=== PATIENT | female | born 1950 | race Caucasian/White ===

== ENCOUNTER → 2019-10-19 10:13 | Outpatient (BNVA) | payer MEDICARE, OTHER, SELFPAY | PROVIDERS: Visit Provider Internal Medicine | DX: E04.1 Nontoxic single thyroid nodule (principal); E03.9 Hypothyroidism, unspecified; E55.9 Vitamin D deficiency, unspecified; G47.33 Obstructive sleep apnea (adult) (pediatric); I10 Essential (primary) hypertension; M35.00 Sjogren syndrome, unspecified; M81.0 Age-related osteoporosis without current pathological fracture; N18.3 Chronic kidney disease, stage 3 (moderate); R53.82 Chronic fatigue, unspecified; R73.03 Prediabetes | CPT/HCPCS: 99204 ==

== ENCOUNTER 2019-12-01 12:19 | Outpatient (CLI) | payer MEDICARE, OTHER, SELFPAY ==
--- NOTE | 2019-12-01 12:45 | US_ITS ---
WS: [id number] THYROID ULTRASOUND HISTORY: assess thyroid for nodule COMPARISON: None available. Right lobe: 3.2 cm x 0.8 cm x 1.1 cm. Volume: 1.5 cm3. Small atrophic thyroid with mild diffuse heterogeneity. Margins are ill-defined. No discrete nodule o r increased vascularity. Left lobe: 3.1 cm x 0.9 cm x 0.7 cm. Volume: 1.0 cm3. Small atrophic thyroid with diffuse heterogeneity. Margins are ill-defined. No discrete nodule. No in creased vascularity. Isthmus: 0.2 cm. US/US thyroid [id number] IMPRESSION: Bilateral atrophic thyroid with no discrete nodule. Consistent with chronic dif fuse thyroid disease.
== END 2019-12-01 12:20 | disposition home or self-care (01) ==
LOC: US 12:22
PROVIDERS: PCP Family Medicine; Visit Provider Internal Medicine
DX: E04.1 Nontoxic single thyroid nodule (principal); E03.4 Atrophy of thyroid (acquired)
CPT/HCPCS: 76536

== ENCOUNTER 2019-12-14 13:36 | Outpatient (CLI) | payer MEDICARE, OTHER, SELFPAY ==
[2019-12-14 14:44] LABS: Estmated Average Glucose 123; Hemoglobin A1C 5.9 % (4.0-6.0)
[2019-12-14 14:45] LABS: 25 Hydroxy Vitamin D 70 ng/mL (30-100); Thyroid Stimulating Hormone 0.14 uIU/mL (0.27-4.20)
[2019-12-14 15:19] LABS: Free T4 Free Thyroxine 1.54 ng/dL (0.82-1.77)
== END 2019-12-14 13:37 | disposition home or self-care (01) ==
LOC: LAB 13:46
PROVIDERS: PCP Family Medicine; Visit Provider Internal Medicine
DX: E03.9 Hypothyroidism, unspecified (principal); E04.1 Nontoxic single thyroid nodule; E55.9 Vitamin D deficiency, unspecified; R73.03 Prediabetes; R53.82 Chronic fatigue, unspecified
CPT/HCPCS: 36415; 82306; 83036; 84439; 84443

== ENCOUNTER → 2019-12-18 09:28 | Outpatient (BNVA) | payer MEDICARE, OTHER, SELFPAY | PROVIDERS: PCP Family Medicine; Visit Provider Family Medicine | DX: I10 Essential (primary) hypertension (principal); F33.9 Major depressive disorder, recurrent, unspecified; F41.9 Anxiety disorder, unspecified | CPT/HCPCS: 80053; 80061; 82043; 85025 ==

== ENCOUNTER → 2019-12-19 08:02 | Outpatient (BNVA) | payer MEDICARE, OTHER, SELFPAY | PROVIDERS: PCP Family Medicine; Visit Provider Psychiatry & Neurology Neurology | DX: E03.9 Hypothyroidism, unspecified (principal); G47.33 Obstructive sleep apnea (adult) (pediatric); M81.0 Age-related osteoporosis without current pathological fracture; R73.03 Prediabetes | CPT/HCPCS: 99214 ==

== ENCOUNTER → 2020-01-16 13:59 | Outpatient (BNVA) | payer MEDICARE, OTHER, SELFPAY | PROVIDERS: PCP Family Medicine; Visit Provider Psychiatry & Neurology Psychiatry | DX: F41.1 Generalized anxiety disorder (principal); F33.2 Major depressive disorder, recurrent severe without psychotic features | CPT/HCPCS: 99204 ==

== ENCOUNTER → 2020-03-05 12:58 | Outpatient (BNVA) | payer MEDICARE, OTHER, SELFPAY | PROVIDERS: PCP Family Medicine; Visit Provider Internal Medicine | DX: E03.9 Hypothyroidism, unspecified (principal); G47.33 Obstructive sleep apnea (adult) (pediatric); M81.0 Age-related osteoporosis without current pathological fracture; R73.03 Prediabetes | CPT/HCPCS: 84439; 84443; 99214 ==

== ENCOUNTER 2020-03-05 13:55 | Outpatient (CLI) | payer MEDICARE, OTHER, SELFPAY | END 2020-03-05 13:56 | disposition home or self-care (01) | LOC: LAB 13:59 | PROVIDERS: PCP Family Medicine; Visit Provider Internal Medicine | DX: E03.9 Hypothyroidism, unspecified (principal) | CPT/HCPCS: 84439; 84443 ==

== ENCOUNTER → 2020-03-11 09:18 | Outpatient (BNVA) | payer MEDICARE, OTHER, SELFPAY | PROVIDERS: PCP Family Medicine; Visit Provider Psychiatry & Neurology Psychiatry | DX: F33.2 Major depressive disorder, recurrent severe without psychotic features (principal); F41.1 Generalized anxiety disorder | CPT/HCPCS: 99214 ==

== ENCOUNTER 2020-05-30 14:04 | Outpatient (CLI) | payer MEDICARE, OTHER, SELFPAY ==
--- NOTE | 2020-05-30 14:19 | US_ITS ---
WS: [id number] RENAL ULTRASOUND HISTORY: CHRONIC KIDNEY DZ STAGE III COMPARISON: None available. TECHNIQUE: 2-D and color Doppler imaging of the kidney submitted. Right kidney: 9.6 cm x 3.5 cm x 4.4 cm. Mild renal atrophy and increased echogenicity. No renal obstruction. Left kidney: 8.4 cm x 3.6 cm x 3.8 cm. Mild atrophy with increased echogenicity from chronic medical renal disease. Cyst in the lower pole m easures 2.8 x 1.9 x 2.1 cm. Aorta: Normal. Urinary Bladder: Normal distention. US/US renal BI* [id number] IMPRESSION: Mild chronic medical renal disease. Simple cyst LEFT kidney. No obstruction.
== END 2020-05-30 14:05 | disposition home or self-care (01) ==
LOC: RAD 14:09
PROVIDERS: PCP Family Medicine; Visit Provider Family Medicine
DX: N18.30 Chronic kidney disease, stage 3 unspecified (principal); Q61.01 Congenital single renal cyst
CPT/HCPCS: 76770

== ENCOUNTER 2020-05-30 14:58 | Outpatient (CLI) | payer MEDICARE, OTHER, SELFPAY ==
--- NOTE | 2020-05-30 15:05 | MM_ITS ---
WS: [id number] SCREENING DIGITAL MAMMOGRAM WITH CAD HISTORY: SCREENING COMPARISON: 03/01/2019, 02/01/2018 and 05/25/2013 Bilateral CC and MLO views submitted. Computer aided detection analyzed. Breast composition: There are scattered areas of fibroglandular density. There is a new 10 mm nodule in the medial LEFT breast near 9:00 posteriorly. There are additional benign rodlike calcifications i n the upper outer quadrant of the RIGHT breast. MM/[place] [id number] IMPRESSION: BI-RADS: 0-Incomplete: Need additional imaging evaluation FOLLOW UP: Need Additional Imaging LEFT breast: Spot compression views (CC and MLO). True ML. Ultrasound to follow if abnormality persists.
== END 2020-05-30 14:59 | disposition home or self-care (01) ==
PROVIDERS: PCP Family Medicine; Visit Provider Family Medicine
DX: Z12.31 Encounter for screening mammogram for malignant neoplasm of breast (principal)
CPT/HCPCS: 77067

== ENCOUNTER 2020-06-11 12:49 | Outpatient (CLI) | payer MEDICARE, OTHER, SELFPAY ==
--- NOTE | 2020-06-11 13:00 | MM_ITS ---
WS: [id number] ADDITIONAL VIEWS LEFT MAMMOGRAM LEFT BREAST ULTRASOUND HISTORY: ABNORMAL MAMMO COMPARISON: 05/30/2020 and 03/01/2019 and 02/01/2018 LEFT MAMMOGRAM: Spot compression views and true ML. Soft tissue mass with ill-defined naranjo persists measuring 11 mm at 9:00 LEFT breast at a middle dept h. Ultrasound to follow. LEFT BREAST ULTRASOUND 2-D and color Doppler imaging submitted. Ultrasound directed to the LEFT breast at 9:00. At 9:00, 3 cm from the nipple, there is a hypoechoic mass with thick naranjo. No increased vascularity. This may be a complex cyst. No through-transmission. No solid component or increased vascularity. This hypoechoic mass measures 1.0 x 0.6 x 1.1 cm. MM/[place] [id number] IMPRESSION: BI-RADS: 4-Suspicious Finding-Biopsy Should Be Considered FOLLOW UP: Biopsy Recommended Aspiration and/or core needle biopsy is recommended of the mass at 9:00 in the LEFT breast. This may be a complex cyst with thick naranjo. If this mass does not aspirate core needle biopsy should be obtained.
--- NOTE | 2020-06-11 13:30 | US_ITS ---
WS: [id number] ADDITIONAL VIEWS LEFT MAMMOGRAM LEFT BREAST ULTRASOUND HISTORY: ABNORMAL MAMMO COMPARISON: 05/30/2020 and 03/01/2019 and 02/01/2018 LEFT MAMMOGRAM: Spot compression views and true ML. Soft tissue mass with ill-defined naranjo persists measuring 11 mm at 9:00 LEFT breast at a middle dept h. Ultrasound to follow. LEFT BREAST ULTRASOUND 2-D and color Doppler imaging submitted. Ultrasound directed to the LEFT breast at 9:00. At 9:00, 3 cm from the nipple, there is a hypoechoic mass with thick naranjo. No increased vascularity. This may be a complex cyst. No through-transmission. No solid component or increased vascularity. This hypoechoic mass measures 1.0 x 0.6 x 1.1 cm. US/US breast LT limited* [id number] IMPRESSION: BI-RADS: 4-Suspicious Finding-Biopsy Should Be Considered FOLLOW UP: Biopsy Recommended Aspiration and/or core needle biopsy is recommended of the mass at 9:00 in the LEFT breast. This may be a complex cyst with thick naranjo. If this mass does not aspirate core needle biopsy should be obtained.
--- NOTE | 2020-06-14 10:57 | PC.NURSE ---
Called pt to set up biopsy. Pt stated she will be out of town until 07/02, and that she wants to wait until she gets back on 07/02 to do the biopsy. I told her if she needs anything or decides to have it done sooner, to let me know. Pt voiced understanding and stated she would get in touch when she comes back home from vacation. Gallo PHELPS
== END 2020-06-11 12:50 | disposition home or self-care (01) ==
LOC: RADSHAW 12:56
PROVIDERS: PCP Family Medicine; Visit Provider Family Medicine
DX: R92.8 Other abnormal and inconclusive findings on diagnostic imaging of breast (principal); N63.25 Unspecified lump in the left breast, overlapping quadrants
CPT/HCPCS: 76642; 77065

== ENCOUNTER 2020-07-11 07:25 | Outpatient (CLI) | payer MEDICARE, OTHER, SELFPAY ==
--- NOTE | 2020-07-11 08:00 | US_ITS ---
WS: [id number] ULTRASOUND-GUIDED LEFT BREAST BIOPSY HISTORY: ABNORMAL MAMMO COMPARISON: 06/11/2020 Procedure, risks and complications are explained to the patient. Medications are reviewed. Consent is obtained. The mass in the LEFT breast is localized with ultrasound. Skin is cleansed with ChloraPrep and anesth etized with 1% buffered lidocaine. Small dermatome is made. Under sterile conditions mass is biopsied with a 14-gauge Achieve needle. Only a single biopsy performed as the cyst completely collapsed afte r the initial biopsy. Material placed in formalin and sent to pathology for review. No complications encountered. Breast tissue marker ([employer] ultrasound enhanced ribbon): None. Mass completely collapsed after the fir st biopsy. Could not definitely identify the location for clip to be place. Patient left the radiology suite with no complications. Patient is instructed to return to [facility] or [facility] with any concerns. US/[place] [id number] IMPRESSION: 1. Uncomplicated core needle biopsy LEFT breast mass. Mass completely collapse d after the initial biopsy consistent with a cyst. PATHOLOGY: Benign breast tissue with duct ectasia, chronic inflammation and str omal sclerosis. No malignancy. RECOMMENDATION: Return to screening annual mammography. Screening mammogram to be scheduled for May 2021.
== END 2020-07-11 07:26 | disposition home or self-care (01) ==
LOC: RAD 07:30
PROVIDERS: PCP Family Medicine; Visit Provider Family Medicine
DX: N63.25 Unspecified lump in the left breast, overlapping quadrants (principal); N60.42 Mammary duct ectasia of left breast
CPT/HCPCS: 19083; 88305

== ENCOUNTER 2020-09-03 14:25 | Outpatient (CLI) | payer MEDICARE, OTHER, SELFPAY ==
--- NOTE | 2020-09-03 14:34 | XR_ITS ---
WS: [id number] PROCEDURE: XR chest 2V* [id number] CLINICAL INFORMATION: [place] COMPARISON: None. FINDINGS: Heart: Normal cardiac silhouette. Lungs: Hyperinflation. Advanced chronic emphysematous changes. No acute pulmonary infiltrates. Pleura l thickening with fibrosis right upper lobe with volume loss. Bronchiectasis right upper lobe. No foc al pneumonia or pleural fluid. Bones: Thoracolumbar scoliosis. Mild thoracic kyphosis. Osteopenia. XR/XR chest 2V* [id number] IMPRESSION: 1. Hyperinflation with advanced chronic emphysematous changes. 2. Pleural thickening with parenchymal scarring right upper lobe with volume l oss. This can be further evaluated with chest CT to exclude underlying lesion. Bronchiectasis right upper lobe. 3. No acute pulmonary infiltrates.
== END 2020-09-03 14:26 | disposition home or self-care (01) ==
PROVIDERS: PCP Family Medicine; Visit Provider Family Medicine
DX: Z13.6 Encounter for screening for cardiovascular disorders (principal); R06.09 Other forms of dyspnea; J47.9 Bronchiectasis, uncomplicated; N18.32 Chronic kidney disease, stage 3b; E03.9 Hypothyroidism, unspecified
CPT/HCPCS: 71046; 80053; 84439; 84443

== ENCOUNTER 2020-09-11 09:49 | Outpatient (CLI) | payer MEDICARE, OTHER, SELFPAY ==
--- NOTE | 2020-09-11 10:15 | CT_ITS ---
WS: [id number] Exam: CT chest wo con [id number] Date/Time of Exam: 09/11/2020 9:59 AM Reason For Exam: wheezing DLP: 825.[address] scans at [facility] use at least one of these dose optimization techniques: automat ed exposure control; mA and/or kV adjustment per patient size (includes targeted exams where dose is matched to clinical indication); or iterative reconstruction. There is pleural thickening and an fibrous pulmonary parenchymal changes in the right upper lobe. Rig ht hilar lymphadenopathy noted. The largest node measures about 1 cm at greatest short axis dimension . Subcentimeter mediastinal lymph nodes noted. The left lung is clear and fully expanded. The thoraci c aorta is normal in caliber. The trachea and mainstem bronchi are patent. No pleural or pericardial effusion. The remaining lung zones are clear. CT sections of the upper abdomen are unremarkable. Subc entimeter stone in the gallbladder. No destructive bone lesions. The chest wall is intact. Recommendations: Further workup with bronchoscopy and biopsy could be considered. Otherwise follow-up CT scan in 3 months for surveillance could be performed. CT/CT chest wo con [id number] IMPRESSION: 1. Pleural thickening and fibrous parenchymal pulmonary changes in the right up per lobe with bronchiectasis. Although these changes could be chronic, bronchio loalveolar cell carcinoma might have this appearance. Mildly enlarged right hil ar lymph nodes identified measuring up to 1 cm greatest short axis dimension. S ubcentimeter mediastinal lymph nodes noted.
== END 2020-09-11 09:50 | disposition home or self-care (01) ==
PROVIDERS: PCP Family Medicine; Visit Provider Family Medicine
DX: R06.2 Wheezing (principal)
CPT/HCPCS: 71250

== ENCOUNTER 2020-11-15 07:52 | Outpatient (CLI) | payer MEDICARE, OTHER, SELFPAY ==
--- NOTE | 2020-11-15 07:55 | US_ITS ---
WS: [id number] RENAL ULTRASOUND HISTORY: N18.32 - Chronic kidney disease, stage 3b COMPARISON: 05/30/2020 TECHNIQUE: 2-D and color Doppler imaging of the kidney submitted. Right kidney: 9.8 cm x 4.4 cm x 4.1 cm. Normal echogenicity with no hydronephrosis or mass. Left kidney: 9.1 cm x 4.9 cm x 4.5 cm. Normal echogenicity with no hydronephrosis or mass. Previously described LEFT renal cyst is not ident ified today. Aorta: Normal. Urinary Bladder: Normal distention. US/US renal BI* [id number] IMPRESSION: 1. No renal obstruction or solid mass identified. 2. Previously described LEFT renal cyst is not identified. 3. On today's examination there is no evidence for chronic medical renal disea se.
== END 2020-11-15 07:53 | disposition home or self-care (01) ==
LOC: RAD 07:53
PROVIDERS: PCP Family Medicine; Visit Provider Family Medicine
DX: N18.32 Chronic kidney disease, stage 3b (principal)
CPT/HCPCS: 76770

== ENCOUNTER 2020-11-21 14:33 | Outpatient (CLI) | payer MEDICARE, OTHER, SELFPAY ==
[2020-11-21 15:28] LABS: Basophils # 0.1 10^3/uL (0.0-0.1); Basophils % 0.5 %; Eosinophils # 0.4 10^3/uL (0.0-0.8); Eosinophils % 3.5 %; Hematocrit 45.6 % (37.0-47.0); Hemoglobin 14.8 g/dL (11.5-15.3); Lymphocytes # 2.9 10^3/uL (0.8-4.8); Lymphocytes % 29.5 %; Mean Corpuscular HGB Conc 32.5 g/dL (30.0-36.0); Mean Corpuscular Hemoglobin 30.4 pg (28.0-34.0); Mean Corpuscular Volume 93.6 fl (81-99); Mean Platelet Volume 10.4 fL (7.4-10.4); Monocytes # 0.8 10^3/uL (0.2-0.9); Monocytes % 8.1 %; Neutrophils # 5.79 10^3/uL (1.8-7.7); Neutrophils % 58.2 %; Nucleated Red Blood Cells % 0 %; Platelet Count 275 10^3/cmm (130-400); Red Blood Count 4.87 10^6/uL (4.1-5.3); Red Cell Distribution Width 12.3 % (12.1-15.1)
[2020-11-21 15:50] LABS: Immunoglobulin IGA 170 mg/dL (70-400); Immunoglobulin IGG 1160 mg/dL (700-1600); Immunoglobulin IGM 127 mg/dL (40-230)
[2020-11-22 17:32] LABS: Immunoglobulin E 57 kU/L (<OR=114)
[2020-11-22 17:58] LABS: Alternaria Alternata (M6) Ige 1.63 kU/L; Alternaria Class 2; Bermuda Class 0/1; Bermuda Grass (G2) Ige 0.31 kU/L; Cat Dander (E1) Ige 0.12 kU/L; Cat Dander Class 0/1; Common Ragweed (Short) (W1) Ig <0.10 kU/L; D. Farinae Class 0; Dermatophagoides Class 0; Dermatophagoides Farinae (D2) <0.10 kU/L; Dermatophagoides Pteronyssinus <0.10 kU/L; Dog Dander (E5) Ige <0.10 kU/L; Dog Dander Class 0; Elm (T8) Ige <0.10 kU/L; Elm Class 0; English Plantain (W9) Ige <0.10 kU/L; English Plantain Class 0; House Dust (Greer) (H1) Ige <0.10 kU/L; House Dust (Hollister- Stier) <0.10 kU/L; House Dust Class 0; Immunoglobulin E 50 kU/L (<OR=114); Johnson Grass (G10) Ige 0.59 kU/L; Johnson Grass Cl 1; June Grass Class 2; June Grass(Kentucky Blue) (G8) 0.86 kU/L; Lamb'S Quarters (Goose Foot) <0.10 kU/L; Lamb'S Quarters Class 0; Maple (Box Elder) (T1) Ige <0.10 kU/L; Maple Class 0; Meadow Fescue (G4) Ige 0.66 kU/L; Meadow Fescue Class 1; Mucor Racemosus Class 0; Oak (T7) Ige <0.10 kU/L; Oak Class 0; Orchard Grass (Cocksfoot) (G3) 0.65 kU/L; Penicillium Class 0/1; Penicillium Notatum (M1) Ige 0.16 kU/L; Perennial Rye Grass (G5) Ige 0.59 kU/L; Perennial Rye Grass Class 1; Ragweeed Class 0; Rough Marsh Elder (W16) Ige <0.10 kU/L; Rough Marsh Elder Class 0; Sweet Vernal Class 1; Sweet Vernal Grass (G1) Ige 0.65 kU/L; Timothy Grass (G6) Ige 0.57 kU/L; Timothy Grass Class 1
[2020-11-25 19:18] LABS: Aspergillus Fumigatus, Igg Ab, 14.9 mg/L (<=102)
[2020-11-26 17:57] LABS: Aspergillus AG,EIA,Serum NOT DETECTED; Aspergillus Galactomannan Inde <0.50
== END 2020-11-21 14:34 | disposition home or self-care (01) ==
PROVIDERS: PCP Family Medicine; Visit Provider Internal Medicine Pulmonary Disease
DX: J45.909 Unspecified asthma, uncomplicated (principal); J47.9 Bronchiectasis, uncomplicated; R06.00 Dyspnea, unspecified
CPT/HCPCS: 82784; 82785; 85025; 86003; 87305

== ENCOUNTER → 2021-01-08 15:30 | Outpatient (BNVA) | payer MEDICARE, OTHER, SELFPAY | PROVIDERS: PCP Family Medicine; Visit Provider Internal Medicine Pulmonary Disease | DX: Z20.822 Contact with and (suspected) exposure to COVID-19 (principal) | CPT/HCPCS: 87635 ==

== ENCOUNTER 2021-01-14 13:43 | Outpatient (CLI) | payer MEDICARE, OTHER, SELFPAY ==
--- NOTE | 2021-01-14 10:23 | PFTS_ITS ---
Date of Study:02/27/21 Date of Dictation: 03/04/21 MECHANICS: Postbronchodilator forced vital capacity (FVC) is normal. Postbronchodilator forced expiratory volume in one second (FEV1) is normal. FEV1/FVC is reduced. There is significant response to bronchodilator. FLOW VOLUME LOOP: Sloping of expiratory limb suggestive of obstructive ventilatory defect LUNG VOLUMES: Total lung capacity (TLC) is normal. Residual volume (RV) is normal. DIFFUSING CAPACITY FOR CARBON MONOXIDE: normal . INTERPRETATION: The spirometry suggestive of mild obstruction. There is significant response to bronchodilator. Lung volumes and gas transfer are normal.-clinical Correlation recommended. MTDD
--- NOTE | 2021-01-14 14:30 | PFTS_ITS ---
Date of Study:01/14/21 Date of Dictation: 01/14/2021 MECHANICS: Postbronchodilator forced vital capacity (FVC) is normal. Postbronchodilator forced expiratory volume in one second (FEV1) is normal. FEV1/FVC is normal. There is significant response to bronchodilator. FLOW VOLUME LOOP: Sloping of expiratory limb suggestive of obstructive ventilatory defect LUNG VOLUMES: Total lung capacity (TLC) is normal. Residual volume (RV) is normal. DIFFUSING CAPACITY FOR CARBON MONOXIDE: normal . INTERPRETATION: The pulmonary function tests are normal. There is significant response to bronchodilator.-clinical Correlation recommended. MTDD
== END 2021-01-14 13:44 | disposition home or self-care (01) ==
LOC: RT 13:44
PROVIDERS: PCP Family Medicine; Visit Provider Internal Medicine Pulmonary Disease
DX: J45.20 Mild intermittent asthma, uncomplicated (principal)
CPT/HCPCS: 94060; 94726; 94729; J7611

== ENCOUNTER → 2021-03-11 08:21 | Outpatient (BNVA) | payer MEDICARE, SELFPAY | PROVIDERS: PCP Family Medicine; Visit Provider Family Medicine | DX: I10 Essential (primary) hypertension (principal); Z78.0 Asymptomatic menopausal state; E03.9 Hypothyroidism, unspecified; N18.32 Chronic kidney disease, stage 3b; Z23 Encounter for immunization | CPT/HCPCS: 80053; 80061; 82043; 84439; 84443 ==

== ENCOUNTER → 2021-04-08 08:55 | Outpatient (BNVA) | payer MEDICARE, SELFPAY | PROVIDERS: PCP Family Medicine; Visit Provider Family Medicine | DX: E78.5 Hyperlipidemia, unspecified (principal) | CPT/HCPCS: 80053 ==

== ENCOUNTER → 2021-05-06 10:04 | Outpatient (BNVA) | payer MEDICARE, SELFPAY | PROVIDERS: PCP Family Medicine; Visit Provider Family Medicine | DX: I10 Essential (primary) hypertension (principal); K29.70 Gastritis, unspecified, without bleeding; J06.9 Acute upper respiratory infection, unspecified; E78.5 Hyperlipidemia, unspecified | CPT/HCPCS: 80048 ==

== ENCOUNTER 2021-05-15 14:28 | Outpatient (CLI) | payer MEDICARE, SELFPAY ==
[2021-05-15 15:30] LABS: Basophils % 0.4 %; Eosinophils # 0.3 10^3/uL (0.0-0.8); Eosinophils % 3.6 %; Hematocrit 41.4 % (37.0-47.0); Hemoglobin 13.4 g/dL (11.5-15.3); Lymphocytes % 31.3 %; Mean Corpuscular HGB Conc 32.4 g/dL (30.0-36.0); Mean Corpuscular Hemoglobin 29.2 pg (28.0-34.0); Mean Corpuscular Volume 90.2 fl (81-99); Mean Platelet Volume 9.6 fL (7.4-10.4); Monocytes # 0.9 10^3/uL (0.2-0.9); Monocytes % 9.1 %; Neutrophils # 5.24 10^3/uL (1.8-7.7); Neutrophils % 55.3 %; Nucleated Red Blood Cells % 0 %; Platelet Count 304 10^3/cmm (130-400); Red Blood Count 4.59 10^6/uL (4.1-5.3); Red Cell Distribution Width 12.3 % (12.1-15.1); White Blood Count 9.5 10^3/uL (4.0-10.0)
[2021-05-15 15:55] LABS: Albumin Level 4.4 g/dL (3.5-5.2); Anion Gap 16.4 (5-19); Blood Urea Nitrogen 14 mg/dL (8-23); Calcium 9.8 mg/dL (8.5-10.5); Carbon Dioxide 24 mmol/L (22-29); Chloride 100 mmol/L (98-107); Glucose 85 mg/dL (65-115); Phosphorus 3.3 mg/dL (2.5-4.5); Potassium 3.4 mmol/L (3.5-5.1); Sodium 137 mmol/L (136-145)
[2021-05-15 16:02] LABS: Calcium 9.9 mg/dL (8.5-10.5)
[2021-05-15 16:08] LABS: 25 Hydroxy Vitamin D 58 ng/mL (30-100)
[2021-05-15 16:10] LABS: Parathyroid Hormone 53.9 pg/mL (15-65)
[2021-05-15 16:12] LABS: Add Urine Culture? No; Bacteria Urine TRACE /hpf; Bilirubin Urine Neg (Negative); Blood Urine Neg (Negative); Glucose Urine UA Norm (Normal); Ketones Urine Negative (Negative); Leukocyte Esterase Urine Negative (Negative); Nitrate Urine Negative (Negative); Protein Urine Neg (Negative); RBC Urine 0-4 /hpf (0-2); Squamous Epithelial Cell Urine 0-4 /hpf (0-5); Urine Appearance Clear (CLEAR); Urine Color Yellow (Yellow); Urobilinogen Urine Norm (Negative); WBC Urine 0-4 /hpf (0-5); pH Urine 5 (5-7)
[2021-05-15 16:32] LABS: Creatinine Urine, Random 25 mg/dL (28-217); Microalbum Creatinine Ratio Ur 40 mg/dL (0-20); Microalbumin Random Urine 1 ug/dL (0-20)
== END 2021-05-15 14:29 | disposition home or self-care (01) ==
PROVIDERS: PCP Family Medicine; Visit Provider Internal Medicine Nephrology
DX: E55.9 Vitamin D deficiency, unspecified (principal); N18.32 Chronic kidney disease, stage 3b
CPT/HCPCS: 36415; 80069; 81001; 82044; 82306; 82310; 83970; 85025

== ENCOUNTER → 2021-07-09 13:08 | Outpatient (BNVA) | payer MEDICARE, OTHER, SELFPAY | PROVIDERS: PCP Family Medicine; Visit Provider Internal Medicine Pulmonary Disease | DX: R06.00 Dyspnea, unspecified (principal); J45.20 Mild intermittent asthma, uncomplicated; J47.9 Bronchiectasis, uncomplicated; M35.00 Sjogren syndrome, unspecified; G47.33 Obstructive sleep apnea (adult) (pediatric); E03.9 Hypothyroidism, unspecified; R91.1 Solitary pulmonary nodule; K80.20 Calculus of gallbladder without cholecystitis without obstruction | CPT/HCPCS: 71250; 99214 ==

== ENCOUNTER 2021-07-09 14:31 | Outpatient (CLI) | payer MEDICARE, OTHER, SELFPAY ==
--- NOTE | 2021-07-09 15:00 | CT_ITS ---
WS: [id number] CT CHEST WITHOUT INTRAVENOUS CONTRAST HISTORY: pulmonary nodules/ pre-procedure CT TECHNIQUE: Contiguous 5 mm axial imaging performed on the thorax. Coronal and sagittal reformats are submitted. All CT scans at [facility] use at least one of these dose optimization techniques: automated exposure control; mA and/or kV adjustment per patient size (includes targeted exams where dose is matched to clinical indication); or iterative reconstruction. CONTRAST: None DLP: 702.90 mGy.cm COMPARISON: PET/CT 11/30/2020. Prior chest CT 09/11/2020 Lungs and central airway: Mild hyperinflated lungs. Previously described PET/CT negative pleural thic kening and bronchiectasis in the RIGHT upper lobe is unchanged. The bronchiectasis has not significan tly progressed. No increase in amount of scarring and pleural thickening. There is an additional calc ification in the RIGHT lower lobe which is stable. No mass or pneumonia. Pleura: Normal. No pleural effusion. Heart and pericardium: Normal size heart with no pericardial effusion. Mediastinum and lisa: No mediastinum or hilar adenopathy. Vessels: Normal size aortic and pulmonary artery. No coronary artery calcifications. Chest wall and lower neck: No soft tissue masses. Upper abdomen: Cholelithiasis without acute cholecystitis. No bile duct dilatation. Osseous structures: Mild compression deformity of T3. CT/CT chest wo con [id number] IMPRESSION: 1. Stable pleural thickening with bronchiectasis RIGHT upper lobe. 2. No mass or pneumonia. No adenopathy. 3. Cholelithiasis without acute cholecystitis.
== END 2021-07-09 14:32 | disposition home or self-care (01) ==
LOC: RAD 14:37
PROVIDERS: PCP Family Medicine; Visit Provider Internal Medicine Pulmonary Disease
DX: K80.20 Calculus of gallbladder without cholecystitis without obstruction (principal); R91.1 Solitary pulmonary nodule; J47.9 Bronchiectasis, uncomplicated; R06.00 Dyspnea, unspecified
CPT/HCPCS: 71250

== ENCOUNTER → 2021-07-31 14:36 | Outpatient (BNVA) | payer MEDICARE, OTHER, SELFPAY | PROVIDERS: PCP Family Medicine; Visit Provider Internal Medicine Pulmonary Disease | DX: R06.00 Dyspnea, unspecified (principal); J45.20 Mild intermittent asthma, uncomplicated; J47.9 Bronchiectasis, uncomplicated; M35.00 Sjogren syndrome, unspecified; G47.33 Obstructive sleep apnea (adult) (pediatric) | CPT/HCPCS: 99214 ==

== ENCOUNTER → 2021-11-11 10:05 | Outpatient (BNVA) | payer MEDICARE, SELFPAY | PROVIDERS: PCP Family Medicine; Visit Provider Family Medicine | DX: I10 Essential (primary) hypertension (principal); R73.03 Prediabetes; E03.9 Hypothyroidism, unspecified; E78.5 Hyperlipidemia, unspecified; N18.32 Chronic kidney disease, stage 3b | CPT/HCPCS: 80053; 80061; 83036; 84443; 85025 ==

== ENCOUNTER 2022-03-16 12:26 | Outpatient (CLI) | payer MEDICARE, OTHER, SELFPAY | END 2022-03-16 12:27 | disposition home or self-care (01) | LOC: LAB 12:30 | PROVIDERS: PCP Family Medicine; Visit Provider Nurse Practitioner Family | DX: R19.7 Diarrhea, unspecified (principal) | CPT/HCPCS: 87493; 87506 ==

== ENCOUNTER → 2022-04-22 13:57 | Outpatient (BNVA) | payer MEDICARE, OTHER, SELFPAY | PROVIDERS: PCP Family Medicine; Visit Provider Internal Medicine Pulmonary Disease | DX: G47.33 Obstructive sleep apnea (adult) (pediatric) (principal); J45.20 Mild intermittent asthma, uncomplicated; J47.9 Bronchiectasis, uncomplicated; M35.00 Sjogren syndrome, unspecified; J82.83 Eosinophilic asthma; R91.8 Other nonspecific abnormal finding of lung field | CPT/HCPCS: 99214 ==

== ENCOUNTER 2022-05-25 12:45 | Outpatient (CLI) | payer MEDICARE, OTHER, SELFPAY ==
[2022-05-25 14:01] LABS: Basophils % 0.3 %; Eosinophils # 0.3 10^3/uL (0.0-0.8); Eosinophils % 2.7 %; Hematocrit 39.1 % (37.0-47.0); Hemoglobin 12.7 g/dL (11.5-15.3); Lymphocytes # 2.3 10^3/uL (0.8-4.8); Lymphocytes % 20.8 %; Mean Corpuscular HGB Conc 32.5 g/dL (30.0-36.0); Mean Corpuscular Hemoglobin 30.1 pg (28.0-34.0); Mean Corpuscular Volume 92.7 fl (81-99); Monocytes # 1.2 10^3/uL (0.2-0.9); Monocytes % 10.9 %; Neutrophils # 7.06 10^3/uL (1.8-7.7); Neutrophils % 64.8 %; Nucleated Red Blood Cells % 0 %; Platelet Count 286 10^3/cmm (130-400); Red Blood Count 4.22 10^6/uL (4.1-5.3); White Blood Count 10.9 10^3/uL (4.0-10.0)
[2022-05-25 14:27] LABS: Albumin Level 4.3 g/dL (3.5-5.2); Anion Gap 11.3 (5-19); Blood Urea Nitrogen 28 mg/dL (8-23); Calcium 9.6 mg/dL (8.5-10.5); Carbon Dioxide 27 mmol/L (22-29); Chloride 97 mmol/L (98-107); Glucose 87 mg/dL (65-115); Phosphorus 2.8 mg/dL (2.5-4.5); Potassium 4.3 mmol/L (3.5-5.1); Sodium 131 mmol/L (136-145)
[2022-05-25 14:28] LABS: Calcium 9.5 mg/dL (8.5-10.5)
[2022-05-25 14:31] LABS: Parathyroid Hormone 26.1 pg/mL (15-65)
[2022-05-25 14:40] LABS: 25 Hydroxy Vitamin D 78 ng/mL (30-100)
[2022-05-25 14:41] LABS: Creatinine Urine, Random 137 mg/dL (28-217); Microalbum Creatinine Ratio Ur 7 mg/dL (0-20); Microalbumin Random Urine 1 ug/dL (0-20)
== END 2022-05-25 12:46 | disposition home or self-care (01) ==
PROVIDERS: PCP Family Medicine; Visit Provider Registered Nurse
DX: N18.32 Chronic kidney disease, stage 3b (principal)
CPT/HCPCS: 36415; 80069; 82044; 82306; 82310; 83970; 85025

== ENCOUNTER 2022-05-27 12:38 | Outpatient (CLI) | payer MEDICARE, OTHER, SELFPAY ==
--- NOTE | 2022-05-27 13:18 | MM_ITS ---
WS: [id number] BILATERAL 3D TOMOSYNTHESIS DIGITAL SCREENING MAMMOGRAPHY WITH CAD CLINICAL INFORMATION: screening mammogram HISTORY: Screening mammogram. No current complaints. COMPARISON: May 30, 2020 TECHNIQUE: Bilateral CC and MLO views. FINDINGS: Scattered fibroglandular densities bilaterally. No suspicious focal mass, asymmetry, calcifications, or architectural distortion. No evidence of malignancy. Stable density subareolar tissue RIGHT breast . Incidental punctate and secretory calcifications RIGHT breast. Vascular calcification. MM/[place] [id number] IMPRESSION: BI-RADS: 2-Benign FOLLOW UP: 1 Year Follow-up Recommend return to annual screening mammography.
== END 2022-05-27 12:39 | disposition home or self-care (01) ==
LOC: RAD 12:45
PROVIDERS: PCP Family Medicine; Visit Provider Family Medicine
DX: Z12.31 Encounter for screening mammogram for malignant neoplasm of breast (principal); E03.9 Hypothyroidism, unspecified; R73.03 Prediabetes; I10 Essential (primary) hypertension
CPT/HCPCS: 77063; 77067; 80053; 83036; 84443

== ENCOUNTER → 2022-09-14 10:34 | Outpatient (BNVA) | payer MEDICARE, OTHER, SELFPAY | PROVIDERS: PCP Family Medicine; Visit Provider Family Medicine | DX: R53.82 Chronic fatigue, unspecified (principal) | CPT/HCPCS: 80053; 84443; 85025 ==

== ENCOUNTER → 2022-10-29 12:31 | Outpatient (BNVA) | payer MEDICARE, OTHER, SELFPAY | PROVIDERS: PCP Family Medicine; Visit Provider Internal Medicine Pulmonary Disease | DX: J82.83 Eosinophilic asthma (principal); G47.33 Obstructive sleep apnea (adult) (pediatric); J47.9 Bronchiectasis, uncomplicated; J30.1 Allergic rhinitis due to pollen; M35.00 Sjogren syndrome, unspecified | CPT/HCPCS: 99214 ==

== ENCOUNTER → 2022-11-09 13:27 | Outpatient (BNVA) | payer MEDICARE, OTHER, SELFPAY | PROVIDERS: PCP Family Medicine; Visit Provider Family Medicine | DX: E78.5 Hyperlipidemia, unspecified (principal); R73.03 Prediabetes | CPT/HCPCS: 80053; 80061; 83036 ==

== ENCOUNTER → 2022-11-24 11:13 | Outpatient (BNVA) | payer MEDICARE, OTHER, SELFPAY | PROVIDERS: PCP Family Medicine; Visit Provider Nurse Practitioner Family | DX: N39.0 Urinary tract infection, site not specified (principal); R53.83 Other fatigue; J32.9 Chronic sinusitis, unspecified | CPT/HCPCS: 81003; 87486; 87581; 87633 ==

== ENCOUNTER → 2023-05-25 15:57 | Outpatient (BNVA) | payer MEDICARE, OTHER, SELFPAY | PROVIDERS: PCP Family Medicine; Visit Provider Family Medicine | DX: I10 Essential (primary) hypertension (principal); E03.9 Hypothyroidism, unspecified; R73.03 Prediabetes | CPT/HCPCS: 80053; 83036; 84443; 85025 ==

== ENCOUNTER 2023-06-02 14:10 | Outpatient (CLI) | payer MEDICARE, OTHER, SELFPAY ==
[2023-06-02 15:17] LABS: Albumin Level 4.3 g/dL (3.5-5.2); Anion Gap 14.9 (5-19); Blood Urea Nitrogen 20 mg/dL (8-23); Calcium 9.4 mg/dL (8.5-10.5); Carbon Dioxide 22 mmol/L (22-29); Chloride 107 mmol/L (98-107); Glucose 148 mg/dL (65-115); Phosphorus 2.4 mg/dL (2.5-4.5); Potassium 3.9 mmol/L (3.5-5.1); Sodium 140 mmol/L (136-145)
[2023-06-02 15:18] LABS: Calcium 9.5 mg/dL (8.5-10.5)
[2023-06-02 15:24] LABS: Creatinine Urine, Random 158 mg/dL (28-217); Microalbum Creatinine Ratio Ur 13 mg/dL (0-20); Microalbumin Random Urine 2 ug/dL (0-20)
[2023-06-02 15:25] LABS: Parathyroid Hormone 39.6 pg/mL (15-65)
[2023-06-02 15:33] LABS: 25 Hydroxy Vitamin D 26 ng/mL (30-100)
== END 2023-06-02 14:11 | disposition home or self-care (01) ==
LOC: LAB 14:15
PROVIDERS: PCP Family Medicine; Visit Provider Internal Medicine Nephrology
DX: N18.31 Chronic kidney disease, stage 3a (principal)
CPT/HCPCS: 36415; 80069; 82044; 82306; 82310; 83970

== ENCOUNTER → 2023-06-23 10:20 | Outpatient (BNVA) | payer MEDICARE, OTHER, SELFPAY | PROVIDERS: PCP Family Medicine; Visit Provider Internal Medicine Pulmonary Disease | DX: J45.20 Mild intermittent asthma, uncomplicated (principal); G47.33 Obstructive sleep apnea (adult) (pediatric); R06.2 Wheezing; J47.9 Bronchiectasis, uncomplicated; M35.00 Sjogren syndrome, unspecified | CPT/HCPCS: 99214 ==

== ENCOUNTER 2023-06-29 14:50 | Outpatient (CLI) | payer MEDICARE, OTHER, SELFPAY ==
--- NOTE | 2023-06-29 15:00 | MM_ITS ---
WS: [id number] BILATERAL 3D TOMOSYNTHESIS DIGITAL SCREENING MAMMOGRAPHY WITH CAD CLINICAL INFORMATION: screening HISTORY: Screening mammogram. No current complaints. COMPARISON: 2022 TECHNIQUE: Bilateral CC and MLO views. FINDINGS: Scattered fibroglandular densities bilaterally. No suspicious focal mass, asymmetry, calcifications, or architectural distortion. No evidence of malignancy. Secretory calcifications RIGHT greater than L EFT. Vascular calcifications. MM/[place] [id number] IMPRESSION: BI-RADS: 2-Benign FOLLOW UP: 1 Year Follow-up Recommend return to annual screening mammography.
== END 2023-06-29 14:51 | disposition home or self-care (01) ==
LOC: MOBLMAM 15:01
PROVIDERS: PCP Family Medicine; Visit Provider Family Medicine
DX: Z12.31 Encounter for screening mammogram for malignant neoplasm of breast (principal)
CPT/HCPCS: 77063; 77067

== ENCOUNTER 2023-06-30 15:35 | Outpatient (CLI) | payer MEDICARE, SELFPAY ==
--- NOTE | 2023-06-30 16:00 | CTR_ITS ---
PROCEDURE INFORMATION: Exam: CT Chest Without Contrast; Diagnostic Exam date and time: 06/30/2023 3:45 PM Age: 72 years old Clinical indication: Patient HX: Follow up, shortness of breath and chest tightness x last few months TECHNIQUE: Imaging protocol: Diagnostic computed tomography of the chest without contrast. Radiation optimization: All CT scans at this facility use at least one of these dose optimization techniques: automated exposure control; mA and/or kV adjustment per patient size (includes targeted exams where dose is matched to clinical indication); or iterative reconstruction. COMPARISON: CT chest wo con [id number] 07/09/2021 2:42 PM RADIATION DOSE METRICS: Total DLP (mGy-cm): 300.38 FINDINGS: Lungs: Lung windows demonstrate stable appearance of chronic pleural thickening, pulmonary parenchymal scarring, and bronchiectasis in the right upper lobe when correlated with prior exam of 07/09/2021. No interval new infiltrate or consolidation. Benign calcification or granuloma in the mid to lower right lung, as noted with prior exam. Mild hyperinflated lungs as noted with prior exam. Pleural spaces: No pleural effusion or pneumothorax. Heart: No cardiomegaly. No pericardial effusion. No coronary artery calcification. Lymph nodes: Nonspecific lymph nodes within the mediastinum that are unchanged with prior exam, without significant enlargement. Vasculature: Mild calcification thoracic aorta. Thoracic aorta and pulmonary arteries appear unremarkable for unenhanced exam otherwise. Diaphragm: Tiny hiatal hernia. Gallbladder and bile ducts: Partially visualized cholelithiasis on images through the upper-most abdomen, chronic with prior exam. Bones/joints: Mild chronic compression deformity T3 with prior exam. Soft tissues: Unremarkable. CT/CT chest con [id number] IMPRESSION: 1. Stable appearance of chronic pleural thickening, pulmonary parenchymal scarring, and bronchiectasis in the right upper lobe with 2021 exam. 2. No acute findings in the chest otherwise, without significant change with prior exam. 3. Cholelithiasis again noted.
== END 2023-06-30 15:36 | disposition home or self-care (01) ==
LOC: RAD 15:36
PROVIDERS: PCP Family Medicine; Visit Provider Internal Medicine Pulmonary Disease
DX: J47.9 Bronchiectasis, uncomplicated (principal); J92.9 Pleural plaque without asbestos; J84.10 Pulmonary fibrosis, unspecified; K80.20 Calculus of gallbladder without cholecystitis without obstruction
CPT/HCPCS: 71250

== ENCOUNTER 2023-07-06 12:17 | Outpatient (CLI) | payer MEDICARE, OTHER, SELFPAY ==
--- NOTE | 2023-07-06 12:21 | XRR_ITS ---
PROCEDURE INFORMATION: Exam: XR Bilateral Hips Exam date and time: 07/06/2023 12:49 PM Age: 72 years old Clinical indication: Hip pain; Bilateral; Additional info: Right hip pain, changed to bilateral TECHNIQUE: Imaging protocol: Radiologic exam of the bilateral hips. Views: 2 views of hips with pelvis when performed. COMPARISON: CR XR hip LT 2-3V wo/w pel* [id number] 07/06/2023 12:49 PM FINDINGS: Bones/joints: Mild bilateral degenerative changes. No acute fracture. Soft tissues: Unremarkable. XR/XR hip BI m 5V wo/w pel* [id number] IMPRESSION: No acute fracture or dislocation.
== END 2023-07-06 12:18 | disposition home or self-care (01) ==
LOC: RAD 12:19
PROVIDERS: PCP Family Medicine; Visit Provider Family Medicine
DX: M25.551 Pain in right hip (principal); M25.552 Pain in left hip; E03.9 Hypothyroidism, unspecified
CPT/HCPCS: 73502; 73523; 84439; 84443

== ENCOUNTER 2023-08-02 18:31 | Emergency (ER) | payer MEDICARE, SELFPAY ==
[2023-08-02 18:39] VITALS: BP 145/71; PULSE 71; RESP 16; TEMP 36.6; O2SAT 96
--- NOTE | 2023-08-02 18:39 | XRR_ITS ---
PROCEDURE INFORMATION: Exam: XR Chest Exam date and time: 08/02/2023 7:10 PM Age: 73 years old Clinical indication: Shortness of breath; Additional info: SOB TECHNIQUE: Imaging protocol: Radiologic exam of the chest. Views: 1 view. COMPARISON: CT chest [facility] [id number] 06/30/2023 3:45 PM FINDINGS: Lungs: Emphysematous changes suspect. Left lower lobe atelectasis versus minimal infiltrate. Right apical pleuroparenchymal fibrosis. Pleural spaces: Trace bilateral pleural effusions suspected. Heart/Mediastinum: Borderline cardiomegaly. Bones/joints: Unremarkable. XR/XR chest 1V portable [id number] IMPRESSION: 1. Emphysematous changes suspected. 2. Borderline cardiomegaly. 3. Trace bilateral pleural effusions suspected. 4. Left lower lobe atelectasis versus minimal infiltrate. 5. Right apical pleuroparenchymal fibrosis.
--- NOTE | 2023-08-02 18:39 | ECG_ITS ---
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 Measurements Intervals [place] Rate: 69 P: 47 VT: 132 QRS: 47 QRSD: 82 T: 48 QT: 354 QTc: 382 Interpretive Statements SINUS RHYTHM LOW QRS VOLTAGE IN PRECORDIAL LEADS [QRS DEFLECTION < 1.0 mV IN CHEST LEADS] No previous ECG available for comparison Electronically Signed On 08-06-2023 13:19:45 CDT by Rafiq Hogan M.D. [id number]
[2023-08-02 19:15] LABS: Basophils % 0.2 %; Eosinophils # 0.4 10^3/uL (0.0-0.8); Eosinophils % 3.1 %; Hematocrit 33.7 % (36-47); Lymphocytes # 4.2 10^3/uL (0.8-4.8); Lymphocytes % 33.3 %; Mean Corpuscular Hemoglobin 30.7 pg (27-33); Mean Corpuscular Volume 95.7 fl (85-98); Mean Platelet Volume 9.2 fL (7.4-10.4); Monocytes % 7.7 %; Neutrophils # 6.91 10^3/uL (1.8-7.7); Neutrophils % 55.3 %; Nucleated Red Blood Cells % 0 %; Platelet Count 293 10^3/cmm (157-399); Red Blood Count 3.52 10^6/uL (3.85-5.65); Red Cell Distribution Width 13.2 % (12.1-15.1); White Blood Count 12.51 10^3/uL (3.29-11.43)
[2023-08-02 19:53] LABS: Alanine Aminotransferase 27 U/L (0-33); Albumin Level 4.1 g/dL (3.5-5.2); Alkaline Phosphatase 55 U/L (35-105); Anion Gap 15.5 (5-19); Aspartate Amino Transferase 16 U/L (0-32); Blood Urea Nitrogen 18 mg/dL (8-23); Calcium 7.9 mg/dL (8.5-10.5); Carbon Dioxide 24 mmol/L (22-29); Chloride 110 mmol/L (98-107); Creatinine Clr Calc Pharmacy 31.8552; Globulin 2.5 g/dL (1.3-4.6); Glucose 134 mg/dL (65-115); NT Pro B Type Natriuretic Pept 561 pg/mL (0-125); Osmolality Calculated 306 mOsm/kg (285-295); Potassium 3.5 mmol/L (3.5-5.1); Sodium 146 mmol/L (136-145); Total Bilirubin 0.2 mg/dL (0.15-1.2); Total Protein 6.6 g/dL (6.6-8.7)
--- NOTE | 2023-08-02 20:55 | ECG_ITS ---
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 Measurements Intervals [place] Rate: 65 P: 54 MD: 138 QRS: 48 QRSD: 79 T: 42 QT: 377 QTc: 392 Interpretive Statements SINUS RHYTHM LOW QRS VOLTAGE IN PRECORDIAL LEADS [QRS DEFLECTION < 1.0 mV IN CHEST LEADS] No previous ECG available for comparison Electronically Signed On 08-06-2023 13:20:34 CDT by Rafiq Hogan M.D. [id number]
[2023-08-02 20:57] LABS: D Dimer 1.93 ug/mLFEU (0-0.59)
[2023-08-02] MEDS: FUROsemide 10 mg/mL SDV 4mL 40 MG IVP (21:02)
--- NOTE | 2023-08-02 21:04 | ED_ITS ---
HPI - SOB/Dyspnea 2 General: Chief Complaint: Shortness of Breath/Dyspnea Stated Complaint: swelling in legs and abd, sob Time Seen by Provider: 08/02/23 20:06 Source: patient Mode of arrival: ambulatory Limitations: no limitations History of Present Illness: HPI Narrative: 73-year-old female states she has been t raveling over the weekend states sometimes she is get some swelling when she travels she take an [id number] water pill states she still feels swollen in her legs states her arms and chest feel swollen as well she had some mild pains throughout her body and chest she has had some mild shortness of breath denies any severe dyspnea denies any cough denies any fevers. Associated symptoms: Reports chest pain; Deny abdominal pain, fever(s), nausea or vomiting Review of Systems 2 Const: Denies: fever(s), chills, body aches or change in appetite Eyes: Denies: blurry vision or eye discomfort ENMT: Denies: throat pain or dental pain Card: Reports: chest pain Resp: Reports: dyspnea GI: Denies: abdominal pain, nausea, vomiting or diarrhea Musc: Reports: extremity swelling; Denies: neck pain or back pain Skin/Breast: Denies: rash Neuro: Denies: headache(s) PFSH ED 2 PFSH: Medical History History of nonmelanoma skin cancer Chronic kidney disease Hypothyroidism Asthma Anxiety Depression Sjogren's disease Surgical History History of hysterectomy H/O tubal ligation Family History Mother Cancer uterine Father Kidney disease Sister Cancer thyroid Social History Smoking and tobacco/nicotine status: never used tobacco/nicotine Alcohol intake: current Alcohol intake frequency: holidays/special occasions only Substance/Drug Use: never Current gender identity: Female Physical Exam 2 Const: COMMON NORMALS: no acute distress, patient oriented x3 and healthy appearing HENMT: COMMON NORMALS: normocephalic and atraumatic HEAD & SCALP: n ormocephalic and atraumatic Neck/C-Spine: COMMON NORMALS: full ROM and supple Chest: COMMONS NORMALS: normal inspection of the chest Resp: COMMON NORMALS: normal respiratory effort, No retractions, No use of accessory muscles and clear to auscultation bilaterally AUSCULTATION: clear to auscultation bilaterally Cardio: COMMON NORMALS: regular rate, regular rhythm and No murmurs present (Cardio) RATE: regular rate RHYTHM: regular rhythm Extremity: COMMON NORMALS: normal to inspection and full ROM Neuro: COMMON NORMALS: patient oriented x3, moves all extremities and no focal motor deficits Psych: COMMON NORMALS: mental status grossly normal, Normal thought process present and cooperative THOUGHT PROCESS: Normal thought process present Skin: COMMON NORMALS: no rashes or lesions noted and no wounds GENERAL SKIN EXAM: no rashes or lesions noted Course 2 Vital Signs: Vital signs: Vital Signs Temperature 97.9 F 08/02/23 18:39 Pulse Rate 65 08/02/23 22:30 Respiratory Rate 16 08/02/23 22:30 Blood Pressure 145/71 08/02/23 18:39 Pulse Oximetry 97 08/02/23 22:30 Oxygen Delivery Me thod Room Air 08/02/23 21:45 MDM - SOB/Dyspnea Medical Decision Making Patient presents for some dyspnea and lower extremity swelling CTA showed no acute findings her troponin is negative no signs of ACS did give her dose of Lasix she is feeling improved here she is stable for discharge follow-up with PCP return if worsening she understands agrees to plan Medical Records I reviewed the patient's medical records. Lab Data I reviewed the patient's lab results. 08/02/23 17:06 08/02/23 17:08 Labs/Radiology: Radiology Impressions Chest X-Ray 08/02/23 18:39 IMPRESSION: 1. Emphysematous changes suspected. 2. Borderline cardiomegaly. 3. Trace bilateral pleural effusions suspected. 4. Left lower lobe atelectasis versus minimal infiltrate. 5. Right apical pleuroparenchymal fibrosis. Chest CTA 08/02/23 21:15 IMPRESSION: 1. Negative for pulmonary embolus. 2. Scattered subcentimeter short axis mediastinal lymph nodes. 3. Small pleural effusions. 4. Distal esophageal wall thickening, please correlate for esophagitis. 5. Cholelithiasis with gallbladder wall thickening, ultrasound could further evaluate. 6. Cardiomegaly. 7. Right upper lobe bronchiectasis with chronic appearing pleuroparenchymal fibrosis, similar to prior exams. 8. Bilateral dependent atelectasis versus infiltrate left greater than right. 9. Left kidney nonobstructing calyceal stone. 10. Left kidney cyst, negative for follow-up advised. Laboratory Results WBC 12.51 10^3/uL (3.29-11.43) H 08/02/23 17:06 RBC 3.52 10^6/uL (3.85-5.65) L 08/02/23 17:06 Hgb 10.80 g/dL (11.27-16.99) L 08/02/23 17:06 Hct 33.7 % (36-47) L 08/02/23 17:06 MCV 95.7 fl (85-98) 08/02/23 17:06 MCH 30.7 pg (27-33) 08/02/23 17:06 MCHC 32.0 g/dL (30-55) 08/02/23 17:06 RDW 13.2 % (12.1-15.1) 08/02/23 17:06 Plt Count 293 10^3/cmm (157-399) 08/02/23 17:06 MPV 9.2 fL (7.4-10.4) 08/02/23 17:06 Neut % (Auto) 55.3 % 08/02/23 17:06 Lymph % (Auto) 33.3 % 08/02/23 17:06 [place] % (Auto) 7.7 % 08/02/23 17:06 Eos % (Auto) 3.1 % 08/02/23 17:06 Baso % (Auto) 0.2 % 08/02/23 17:06 Neut # (Auto) 6.91 10^3/uL (1.8-7.7) 08/02/23 17:06 Lymph # (Auto) 4.2 10^3/uL (0.8-4.8) 08/02/23 17:06 [place] # (Auto) 1.0 10^3/uL (0.2-0.9) H 08/02/23 17:06 Eos # (Auto) 0.4 10^3/uL (0.0-0.8) 08/02/23 17:06 Baso # (Auto) 0.0 10^3/uL (0.0-0.1) 08/02/23 17:06 Nucleated RBC % (auto) 0 % 08/02/23 17:06 Nucleated RBCs # 0.0 /100WBC 08/02/23 17:06 D-Dimer 1.93 ug/mLFEU (0-0.59) H 08/02/23 18:00 Sodium 146 mmol/L (136-145) H 08/02/23 17:08 Potassium 3.5 mmol/L (3.5-5.1) 08/02/23 17:08 Chloride 110 mmol/L (98-107) H 08/02/23 17:08 Carbon Dioxide 24 mmol/L (22-29) 08/02/23 17:08 Anion Gap 15.5 (5-19) 08/02/23 17:08 BUN 18 mg/dL (8-23) 08/02/23 17:08 Creatinine 1.4 mg/dL (0.5-0.9) H 08/02/23 17:08 GFR Calculation Not Reportable 08/02/23 17:08 Glucose 134 mg/dL (65-115) H 08/02/23 17:08 Calculated Osmolality 306 mOsm/kg (285-295) H 08/02/23 17:08 Calcium 7.9 mg/dL (8.5-10.5) L 08/02/23 17:08 Total Bilirubin 0.2 mg/dL (0.15-1.2) 08/02/23 17:08 AST 16 U/L (0-32) 08/02/23 17:08 ALT 27 U/L (0-33) 08/02/23 17:08 Alkaline Phosphatase 55 U/L (35-105) 08/02/23 17:08 Troponin T Baseline 9 ng/L (0-10) 08/02/23 21:00 NT-Pro-B Natriuret Pep 561 pg/mL (0-125) H 08/02/23 17:08 Total Protein 6.6 g/dL (6.6-8.7) 08/02/23 17:08 Albumin 4.1 g/dL (3.5-5.2) 08/02/23 17:08 Globulin 2.5 g/dL (1.3-4.6) 08/02/23 17:08 All radiology interpretation(s) finalized by discharge EKG Data EKG 1: I personally reviewed and interpreted this EKG as follows: EKG Interpretation Date: 08/02/23 EKG interpretation time: 18:32 Interpretation: nsr hr [address] or t wave abnormalities qrs 82 qtc 374 EKG 2: I personally reviewed and interpreted this EKG as follows: EKG Interpretation Date: 08/02/23 EKG interpretation time: 20:55 Interpretation: nsr hr [address] or t wave abnormalities qrs 79 qtc 388 Discharge Plan Discharge Patient Disposition: Home Clinical Impression: Dyspnea, Chest pain Bronchiectasis Qualifiers: Bronchiectasis type: uncomplicated Qualified Code(s): J47.9 - Bronchiectasis, uncomplicated Condition: Stable Prescriptions: No Action cholecalciferol (vitamin D3) 75 mcg (3,000 unit) tablet 3,000 unit PO DAILY calcium carbonate [Calcium 500] 500 mg calcium (1,250 mg) tablet 500 mg PO DAILY multivitamin Tablet 1 tab PO DAILY ketoconazole 2 % shampoo 1 applic topical .2 x weekly Qty: 120 3RF Rx Instructions: Lather into scalp 2 times weekly. Allow to sit on scalp for 5 minutes before rinsing. estradiol 0.01 % (0.1 mg/gram) cream See Rx Instructions .ROUTE DAILY PRN Rx Instructions: pea size amount topically daily PRN; (DME) mucus clearing device Device See Rx Instructions .Route Qty: 1 0RF Rx Instructions: Acapella Device nystatin 100,000 unit/gram cream 1 applic topical TID Qty: 30 1RF hydroxyzine HCl 25 mg tablet 25 mg PO QID PRN (Reason: itching) Qty: 90 0RF prednisone 10 mg tablet 10 mg PO DAILY Qty: 11 0RF Rx Instructions: 2 tabs x 10 mg = 20 mg x 3 days 1 tab x 10 mg = 10 mg x 5 days Trelegy Ellipta 100-62.5-25 mcg blister with device 1 inh inhalation DAILY Qty: 60 3RF montelukast [Singulair] 10 mg tablet 10 mg PO DAILY Qty: 90 3RF (DME) Nebulizer with supplies See Rx Instructions .Route .MEDSUPPLY Qty: 1 0RF Rx Instructions: Supplies may include Circuits and filters ipratropium-albuterol 0.5 mg-3 mg(2.5 mg base)/3 mL solution for nebulization 3 ml inhalation Q6H PRN (Reason: wheezing) Qty: 360 6RF clonazepam 2 mg tablet 2 mg PO .qhs paroxetine HCl 20 mg tablet 40 mg PO DAILY miscellaneous medical supply Misc See Rx Instructions miscellaneous .COMPLEX Qty: 1 0RF Rx Instructions: BiPAP and supplies: BiPAP-IPAP max 20; EPAP minimum 4; max PS 8; minimum PS 4 (DME) Blood Glucose Test Strip See Rx Instructions .Route Qty: 100 0RF Rx Instructions: As directed (DME) glucometer See Rx Instructions .Route .MEDSUPPLY Qty: 1 0RF Rx Instructions: As directed albuterol sulfate [ProAir HFA] 90 mcg/actuation HFA aerosol inhaler 2 puff inhalation QID PRN (Reason: shortness of breath or wheezing) Qty: 8.5 0RF amlodipine 5 mg tablet 5 mg PO DAILY Qty: 90 1RF atorvastatin 20 mg tablet 20 mg PO DAILY 90 Days Qty: 90 1RF omeprazole 40 mg capsule,delayed release(DR/EC) 40 mg PO DAILY Qty: 90 1RF levothyroxine 125 mcg tablet 125 mcg PO DAILY Qty: 90 1RF Rx Instructions: do not take on wednesday night Discharge Orders: Discharge ED (Routine); Ordered 08/02/23 Ordered By: Joaquin Lynch Referrals: Sharon Duran DO [Primary Care Provider] - 1-3 days Discharge Diet: Advance as tolerated Discharge Activity: Resume usual activity Patient Instructions: Dyspnea (ED) Coding Level of Care Code ED Urogynecology Physician for Nikki Padilla
--- NOTE | 2023-08-02 21:15 | CTR_ITS ---
PROCEDURE INFORMATION: Exam: CTA Chest With Contrast Exam date and time: 08/02/2023 9:27 PM Age: 73 years old Clinical indication: Angina; Additional info: SOB TECHNIQUE: Imaging protocol: Computed tomographic angiography of the chest with contrast. Exam focused on the arteries. 3D rendering (Not supervised by radiologist): MIP and/or 3D reconstructed images were created by the technologist. Radiation optimization: All CT scans at this facility use at least one of these dose optimization techniques: automated exposure control; mA and/or kV adjustment per patient size (includes targeted exams where dose is matched to clinical indication); or iterative reconstruction. Contrast material: OMNI 350; Contrast volume: 93 ml; Contrast route: INTRAVENOUS (IV); COMPARISON: CT chest wo con [id number] 06/30/2023 3:45 PM RADIATION DOSE METRICS: Total DLP (mGy-cm): 389 FINDINGS: Pulmonary arteries: Normal. No pulmonary emboli. Aorta: Unremarkable. No aortic aneurysm. No aortic dissection. Lungs: Right upper lobe bronchiectasis with chronic appearing pleuroparenchymal fibrosis, similar to prior exams. Bilateral dependent atelectasis versus infiltrate left greater than right. Pleural spaces: Small pleural effusions. Heart: Cardiomegaly. Esophagus: Distal esophageal wall thickening, please correlate for esophagitis. Lymph nodes: Scattered subcentimeter short axis mediastinal lymph nodes. Gallbladder and bile ducts: Cholelithiasis with gallbladder wall thickening, ultrasound could further evaluate. Bones/joints: Unremarkable. No acute fracture. Soft tissues: Left kidney nonobstructing calyceal stone. Left kidney cyst, negative for follow-up advised. CT/CT angio chest PE protcl [id number] IMPRESSION: 1. Negative for pulmonary embolus. 2. Scattered subcentimeter short axis mediastinal lymph nodes. 3. Small pleural effusions. 4. Distal esophageal wall thickening, please correlate for esophagitis. 5. Cholelithiasis with gallbladder wall thickening, ultrasound could further evaluate. 6. Cardiomegaly. 7. Right upper lobe bronchiectasis with chronic appearing pleuroparenchymal fibrosis, similar to prior exams. 8. Bilateral dependent atelectasis versus infiltrate left greater than right. 9. Left kidney nonobstructing calyceal stone. 10. Left kidney cyst, negative for follow-up advised.
[2023-08-02 21:30] LABS: Troponin(5th) Baseline 9 ng/L (0-10)
[2023-08-02] MEDS: iohexol 350 mg/mL 500 mL Btl (per mL) IV (21:31)
[2023-08-02 21:45] VITALS: PULSE 89; RESP 16; O2SAT 98
[2023-08-02 22:30] VITALS: PULSE 65; RESP 16; O2SAT 97
== END 2023-08-02 22:25 | disposition home or self-care (01) ==
PROVIDERS: Emergency Provider Emergency Medicine; PCP Family Medicine
DX: J47.9 Bronchiectasis, uncomplicated (principal); R06.00 Dyspnea, unspecified; R07.9 Chest pain, unspecified; N18.9 Chronic kidney disease, unspecified
CPT/HCPCS: 36415; 71045; 71275; 80053; 83880; 84484; 85025; 85378; 93005; 96374; 99285; J1940; Q9967

== ENCOUNTER → 2023-08-25 15:48 | Outpatient (BNVA) | payer MEDICARE, SELFPAY | PROVIDERS: PCP Nurse Practitioner Family; Visit Provider Specialist | DX: M25.552 Pain in left hip; M70.62 Trochanteric bursitis, left hip | CPT/HCPCS: 20610; 73502; 99204 ==

== ENCOUNTER 2023-09-21 20:00 | Outpatient (CLI) | payer MEDICARE, SELFPAY | END 2023-09-21 20:01 | disposition home or self-care (01) | LOC: SLEEP 22:12 | PROVIDERS: PCP Nurse Practitioner Family; Visit Provider Internal Medicine Pulmonary Disease | DX: G47.33 Obstructive sleep apnea (adult) (pediatric) (principal) | CPT/HCPCS: 95811 ==

== ENCOUNTER → 2023-09-30 09:25 | Outpatient (BNVA) | payer MEDICARE, SELFPAY | PROVIDERS: PCP Nurse Practitioner Family | DX: R39.9 Unspecified symptoms and signs involving the genitourinary system (principal) | CPT/HCPCS: 81000 ==

== ENCOUNTER 2024-02-27 10:33 | Emergency (ER) | payer MEDICARE, OTHER, SELFPAY ==
[2024-02-27 11:28] VITALS: BP 167/88; PULSE 96; RESP 18; TEMP 36.6; O2SAT 98; BMI 32.2
[2024-02-27 12:33] VITALS: BP 181/73; PULSE 102; O2SAT 93
[2024-02-27 12:54] LABS: Urine Color Orange (Yellow)
[2024-02-27 12:55] LABS: Add Urine Culture? Yes; Add Urine Microscopic? YES; Bacteria Urine 2+ /hpf; UA Manual Slide Review YES; Urine Appearance Slightly Cloudy (CLEAR); WBC Urine >100 /hpf (0-5)
--- NOTE | 2024-02-27 13:02 | CTR_ITS ---
PROCEDURE INFORMATION: Exam: CT Abdomen And Pelvis Without Contrast Exam date and time: 02/27/2024 1:09 PM Age: 73 years old Clinical indication: Pain and injury or trauma; Fall; Blunt; Abdominal wall; Abdominal pain; Localized; Right; Prior surgery; Surgery date: 6+ months; Surgery type: Hyster, umbilical hernia TECHNIQUE: Imaging protocol: Computed tomography of the abdomen and pelvis without contrast. Radiation optimization: All CT scans at this facility use at least one of these dose optimization techniques: automated exposure control; mA and/or kV adjustment per patient size (includes targeted exams where dose is matched to clinical indication); or iterative reconstruction. COMPARISON: CR XR hip LT 2-3V wo/w pel* [id number] 08/25/2023 3:54 PM RADIATION DOSE METRICS: Total DLP (mGy-cm): 658 FINDINGS: Lungs: There is minimal subsegmental atelectasis in the lower lungs. Pleural spaces: There is subtle pleural thickening at the right posterior costophrenic sulcus. Diaphragm: There is a small sliding-type hiatal hernia. Liver: The liver is normal. Gallbladder and biliary ducts: Cholelithiasis is present. There is no sign of cholecystitis. Pancreas: There is moderate atrophy of the pancreas. Spleen: The spleen is unremarkable. Adrenal glands: The adrenal glands are unremarkable. Kidneys and ureters: There is a simple 3.6 cm left renal cyst. There is no hydronephrosis or stones. The right kidney and ureter are unremarkable. Stomach and bowel: The stomach is nondistended, limiting assessment of wall thickness. The small bowel is nondilated. The colon is unremarkable. Appendix: The appendix is normal. Intraperitoneal space: There is no free air or significant intraperitoneal free fluid. Vasculature: There is mild aortic atherosclerotic disease. Lymph nodes: There is no lymphadenopathy in the retroperitoneum, mesentery, pelvis or inguinal regions. Urinary bladder: The urinary bladder is nondistended, limiting assessment of wall thickness. Reproductive: The uterus is absent. There is no adnexal mass or large cyst. Bones/joints: There is mild degenerative disease in the lumbar spine. Acute nondisplaced right posterior 12th rib fracture. The pelvis and hips are unremarkable. Soft tissues: There is no significant ventral hernia but there is mild diastasis of the rectus abdominis muscles. CT/CT kidney stone [id number] IMPRESSION: 1. Acute nondisplaced right posterior 12th rib fracture. 2. No sign of significant traumatic injury in the abdomen or pelvis. 3. Incidental findings above. COMMENTS: Consistent with the [employer]'s Incidental Findings Committee white paper (J Am Jace Radiol 2018): Any incidental renal lesion less than 1 cm or classified as too small to characterize, or any incidental cystic renal lesion characterized as simple-appearing, is likely benign. No follow-up imaging is recommended for these lesions per consensus recommendations based on imaging criteria.
[2024-02-27 13:03] VITALS: BP 129/70; PULSE 85; O2SAT 91
[2024-02-27] MEDS: HYDROcodone-acetaminophen 7.5-325 mg Tablet 1 TAB PO (13:22)
--- NOTE | 2024-02-27 13:25 | ED_ITS ---
HPI - Back Pain/Injury General: Chief Complaint: Back Pain/Injury Stated Complaint: R.side back pain Time Seen by Provider: 02/27/24 12:20 Source: patient Mode of arrival: ambulatory Limitations: no limitations History of Present Illness: 73-year-old female states that she had a fall on landed on her back she been having some right-sided lower and mid back pain and bruising to her flank area since the fall states pains worsen pain is currently 7 out of 10 she denies any other injuries denies hitting her head she is able ambulate states she is also had some dysuria as well. Associated symptoms: Reports dysuria; Deny abdominal pain, chills, fever(s), nausea or vomiting Related Data Home Medications Medication Instructions Recorded Confirmed calcium carbonate (Calcium 500) 500 mg PO DAILY 10/19/19 09/30/23 cholecalciferol (vitamin D3) 75 3,000 unit PO DAILY 10/19/19 09/30/23 mcg (3,000 unit) tablet estradiol 0.01% (0.1 mg/gram) See Rx Instructions .Route DAILY 10/29/22 09/30/23 vaginal cream PRN clonazepam 2 mg tablet 2 mg PO .qhs 05/25/23 09/30/23 paroxetine HCl 20 mg tablet 40 mg PO DAILY 07/06/23 09/30/23 Previous Rx's Medication Instructions Recorded ketoconazole 2 % shampoo 1 applic topical .2 x weekly #120 01/03/20 mL miscellaneous medical supply See Rx Instructions miscellaneous 05/15/21 .COMPLEX #1 ea mucus clearing device #1 ea 07/31/21 blood sugar diagnostic (Blood #100 ea 05/29/22 Glucose Test strips) glucometer #1 ea 05/29/22 hydroxyzine HCl 25 mg tablet 25 mg PO QID PRN itching #90 tabs 08/10/22 albuterol sulfate 90 mcg/actuation 2 puff inhalation QID PRN 03/11/23 aerosol inhaler (ProAir HFA) shortness of breath or wheezing #8.5 grams amlodipine 5 mg tablet 5 mg PO DAILY #90 tabs 05/25/23 atorvastatin 20 mg tablet 20 mg PO DAILY 90 days #90 tabs 05/25/23 omeprazole 40 mg capsule,delayed 40 mg PO DAILY #90 caps 05/25/23 release montelukast 10 mg tablet 10 mg PO DAILY #90 tabs 06/23/23 (Singulair) Nebulizer with supplies #1 ea 06/24/23 ipratropium 0.5 mg-albuterol 3 mg 3 ml inhalation Q6H PRN wheezing 06/24/23 (2.5 mg base)/3 mL nebulization #360 mL soln levothyroxine 125 mcg tablet 125 mcg PO DAILY #90 tabs 07/07/23 fluticasone fur. 100 mcg-umeclid 1 inh inhalation DAILY #60 ea 09/15/23 62.5 mcg-vilant 25 mcg inhalat.powder (Trelegy Ellipta) cephalexin 500 mg capsule 500 mg PO TID 10 days #30 caps 09/30/23 cephalexin 500 mg capsule 500 mg PO TID 7 days #21 caps 02/27/24 hydrocodone 5 mg-acetaminophen 325 1 tab PO Q6H PRN pain #14 tabs 02/27/24 mg tablet Allergies Allergy/AdvReac Type Severity Reaction Status Date / Time prednisone Allergy Severe ADR-Shakine Verified 02/27/24 11:33 ss Review of Systems Const: Denies: fever(s), chills, body aches or change in appetite ENMT: Denies: throat pain or dental pain Card: Denies: chest pain Resp: Denies: dyspnea GI: Denies: abdominal pain, nausea, vomiting or diarrhea : Reports: flank pain and dysuria Musc: Reports: back pain; Denies: neck pain Skin/Breast: Denies: rash Neuro: Denies: headache(s) PFSH ED PFSH: Medical History History of nonmelanoma skin cancer Chronic kidney disease Hypothyroidism Asthma Anxiety Depression Sjogren's disease Surgical History History of hysterectomy H/O tubal ligation Family History Mother Cancer uterine Father Kidney disease Sister Cancer thyroid Social History Smoking and tobacco/nicotine status: never used tobacco/nicotine Alcohol intake: current Alcohol intake frequency: holidays/special occasions only Substance/Drug Use: never Current gender identity: Female Physical Exam Const: COMMON NORMALS: no acute distress, patient oriented x3 and healthy appearing HENMT: COMMON NORMALS: normocephalic and atraumatic HEAD & SCALP: normocephalic and atraumatic Eye: COMMON NORMALS: conjunctivae normal CONJUNCTIVA: Yes conjunctivae normal Neck/C-Spine: COMMON NORMALS: full ROM and supple Chest: COMMONS NORMALS: normal inspection of the chest Resp: COMMON NORMALS: normal respiratory effort, No retractions, No use of accessory muscles and clear to auscultation bilaterally AUSCULTATION: clear to auscultation bilaterally Cardio: COMMON NORMALS: regular rate, regular rhythm and No murmurs present (Cardio) RATE: regular rate RHYTHM: regular rhythm GI: COMMON NORMALS: Normal to inspection, nondistended, normoactive bowel sounds present, Soft to palpation, non-tender and no masses PALPATION: Yes Soft to palpation Back/Pelvis: OTHER: Tenderness over right back does have contusion to right flank area Extremity: COMMON NORMALS: normal to inspection and full ROM Neuro: COMMON NORMALS: patient oriented x3, moves all extremities and no focal motor deficits Psych: COMMON NORMALS: mental status grossly normal, Normal thought process present and cooperative THOUGHT PROCESS: Normal thought process present Skin: COMMON NORMALS: no rashes or lesions noted and no wounds GENERAL SKIN EXAM: no rashes or lesions noted Course Vital Signs: Vital signs: Vital Signs Temperature 97.8 F 02/27/24 11:28 Pulse Rate 96 02/27/24 11:28 Respiratory Rate 18 02/27/24 11:28 Blood Pressure 167/88 02/27/24 11:28 Pulse Oximetry 98 02/27/24 11:28 MDM - Back Pain/Injury Medical Decision Making Patient presents with posterior rib fracture after a fall no other injuries noted also has UTI we will place her on pain meds along with antibiotics she is follow-up with PCP return if worsening. Medical Records I reviewed the patient's medical records. Labs I reviewed the patient's lab results. Radiology Impressions Abdomen/Pelvis CT 02/27/24 13:02 IMPRESSION: 1. Acute nondisplaced right posterior 12th rib fracture. 2. No sign of significant traumatic injury in the abdomen or pelvis. 3. Incidental findings above. COMMENTS: Consistent with the [employer]'s Incidental Findings Committee white paper (J Am Jace Radiol 2018): Any incidental renal lesion less than 1 cm or classified as too small to characterize, or any incidental cystic renal lesion characterized as simple-appearing, is likely benign. No follow-up imaging is recommended for these lesions per consensus recommendations based on imaging criteria. Laboratory Results Urine Color [place] (Yellow) A 02/27/24 11:42 Urine Appearance Slightly cloudy (CLEAR) 02/27/24 11:42 Urine pH TNP 02/27/24 11:42 Ur Specific [place] TNP 02/27/24 11:42 Urine Protein TNP 02/27/24 11:42 Urine Glucose (UA) TNP 02/27/24 11:42 Urine Ketones TNP 02/27/24 11:42 Urine Blood TNP 02/27/24 11:42 Urine Nitrate TNP 02/27/24 11:42 Urine Bilirubin TNP 02/27/24 11:42 Urine Urobilinogen TNP 02/27/24 11:42 Ur Leukocyte Esterase TNP 02/27/24 11:42 Urine RBC None /hpf (0-2) 02/27/24 11:42 Urine WBC >100 /hpf (0-5) H 02/27/24 11:42 Ur Squamous Epith Cells 5-10 /hpf (0-5) H 02/27/24 11:42 Amorphous Sediment Not Reportable 02/27/24 11:42 Urine Bacteria 2+ /hpf (NONE) H 02/27/24 11:42 All radiology interpretation(s) finalized by discharge Discharge Plan Discharge Patient Disposition: Home Clinical Impression: Fall, Closed rib fracture, Acute UTI Condition: Stable Prescriptions: New hydrocodone-acetaminophen 5-325 mg tablet 1 tab PO Q6H PRN (Reason: pain) Qty: 14 0RF cephalexin 500 mg capsule 500 mg PO TID 7 Days Qty: 21 0RF No Action cholecalciferol (vitamin D3) 75 mcg (3,000 unit) tablet 3,000 unit PO DAILY calcium carbonate [Calcium 500] 500 mg calcium (1,250 mg) tablet 500 mg PO DAILY ketoconazole 2 % shampoo 1 applic topical .2 x weekly Qty: 120 3RF Rx Instructions: Lather into scalp 2 times weekly. Allow to sit on scalp for 5 minutes before rinsing. estradiol 0.01 % (0.1 mg/gram) cream See Rx Instructions .ROUTE DAILY PRN Rx Instructions: pea size amount topically daily PRN; (DME) mucus clearing device Device See Rx Instructions .Route Qty: 1 0RF Rx Instructions: Acapella Device hydroxyzine HCl 25 mg tablet 25 mg PO QID PRN (Reason: itching) Qty: 90 0RF montelukast [Singulair] 10 mg tablet 10 mg PO DAILY Qty: 90 3RF (DME) Nebulizer with supplies See Rx Instructions .Route .MEDSUPPLY Qty: 1 0RF Rx Instructions: Supplies may include Circuits and filters ipratropium-albuterol 0.5 mg-3 mg(2.5 mg base)/3 mL solution for nebulization 3 ml inhalation Q6H PRN (Reason: wheezing) Qty: 360 6RF Trelegy Ellipta 100-62.5-25 mcg blister with device 1 inh inhalation DAILY Qty: 60 3RF clonazepam 2 mg tablet 2 mg PO .qhs paroxetine HCl 20 mg tablet 40 mg PO DAILY cephalexin 500 mg capsule 500 mg PO TID 10 Days Qty: 30 0RF miscellaneous medical supply Misc See Rx Instructions miscellaneous .COMPLEX Qty: 1 0RF Rx Instructions: BiPAP and supplies: BiPAP-IPAP max 20; EPAP minimum 4; max PS 8; minimum PS 4 (DME) Blood Glucose Test Strip See Rx Instructions .Route Qty: 100 0RF Rx Instructions: As directed (DME) glucometer See Rx Instructions .Route .MEDSUPPLY Qty: 1 0RF Rx Instructions: As directed albuterol sulfate [ProAir HFA] 90 mcg/actuation HFA aerosol inhaler 2 puff inhalation QID PRN (Reason: shortness of breath or wheezing) Qty: 8.5 0RF amlodipine 5 mg tablet 5 mg PO DAILY Qty: 90 1RF atorvastatin 20 mg tablet 20 mg PO DAILY 90 Days Qty: 90 1RF omeprazole 40 mg capsule,delayed release(DR/EC) 40 mg PO DAILY Qty: 90 1RF levothyroxine 125 mcg tablet 125 mcg PO DAILY Qty: 90 1RF Rx Instructions: do not take on wednesday night Discharge Orders: Discharge ED (Routine); Ordered 02/27/24 Ordered By: Joaquin Lynch Referrals: Karl Shafer NP [Primary Care Provider] - 4-7 days Discharge Diet: Advance as tolerated Discharge Activity: Resume usual activity Patient Instructions: Urinary Tract Infection in Women (ED), Rib Fracture (ED), Opioid Safety Coding Level of Care Code ED Genetic Counsellor for Nikki Padilla
[2024-02-27 13:33] VITALS: BP 153/74; PULSE 87; O2SAT 92
[2024-02-27 14:16] VITALS: BP 147/73; PULSE 113; O2SAT 94
== END 2024-02-27 14:17 | disposition home or self-care (01) ==
PROVIDERS: Emergency Provider Emergency Medicine; PCP Nurse Practitioner Family
DX: S22.31XA Fracture of one rib, right side, initial encounter for closed fracture (principal); Z85.828 Personal history of other malignant neoplasm of skin; N18.9 Chronic kidney disease, unspecified; N39.0 Urinary tract infection, site not specified; W19.XXXA Unspecified fall, initial encounter
CPT/HCPCS: 74176; 81001; 87077; 87086; 87186; 99284

== ENCOUNTER → 2024-04-26 10:26 | Outpatient (BNVA) | payer MEDICARE, OTHER, SELFPAY | PROVIDERS: PCP Nurse Practitioner Family; Visit Provider Specialist | DX: M17.12 Unilateral primary osteoarthritis, left knee (principal) | CPT/HCPCS: 20610; 73560; 73565; 99214; J1100; J2795; J3301; J9999 ==

== ENCOUNTER 2024-07-07 12:20 | Outpatient (CLI) | payer MEDICARE, OTHER, SELFPAY ==
--- NOTE | 2024-07-07 12:22 | MM_ITS ---
WS: [id number] BILATERAL 3D TOMOSYNTHESIS DIGITAL SCREENING MAMMOGRAPHY WITH CAD CLINICAL INFORMATION: SCREENING HISTORY: Screening mammogram. No current complaints. COMPARISON: 2023 TECHNIQUE: Bilateral CC and MLO views. FINDINGS: Scattered fibroglandular densities bilaterally. No suspicious focal mass, asymmetry, calcifications, or architectural distortion. No evidence of malignancy. Secretory calcifications. Vascular calcifications. MM/MM scr tomosynthesis [id number] IMPRESSION: DENSITY: There are scattered areas of fibroglandular density. BI-RADS: 2 - Benign. FOLLOW UP: 1 Year Follow-up Recommend return to annual screening mammography.
== END 2024-07-07 12:21 | disposition home or self-care (01) ==
LOC: RAD 12:20
PROVIDERS: PCP Nurse Practitioner Family; Visit Provider Nurse Practitioner Family
DX: Z12.31 Encounter for screening mammogram for malignant neoplasm of breast (principal); R92.323 Mammographic fibroglandular density, bilateral breasts; R92.1 Mammographic calcification found on diagnostic imaging of breast
CPT/HCPCS: 77063; 77067

== ENCOUNTER 2024-08-07 11:20 | Outpatient (CLI) | payer MEDICARE, OTHER, SELFPAY ==
[2024-08-07 12:59] LABS: Albumin Level 4.4 g/dL (3.5-5.2); Anion Gap 18.8 (5-19); Blood Urea Nitrogen 19 mg/dL (8-23); Calcium 9.4 mg/dL (8.5-10.5); Carbon Dioxide 23 mmol/L (22-29); Chloride 101 mmol/L (98-107); Glucose 112 mg/dL (65-115); Phosphorus 4.1 mg/dL (2.5-4.5); Potassium 3.8 mmol/L (3.5-5.1); Sodium 139 mmol/L (136-145)
[2024-08-07 13:07] LABS: Creatinine Urine, Random 79 mg/dL (28-217); Microalbum Creatinine Ratio Ur 25 mg/dL (0-20); Microalbumin Random Urine 2 ug/dL (0-20)
== END 2024-08-07 11:21 | disposition home or self-care (01) ==
LOC: LAB 11:24
PROVIDERS: PCP Nurse Practitioner Family; Visit Provider Registered Nurse
DX: N18.32 Chronic kidney disease, stage 3b (principal)
CPT/HCPCS: 36415; 80069; 82044

== ENCOUNTER 2024-08-14 13:48 | Outpatient (CLI) | payer MEDICARE, OTHER, SELFPAY ==
[2024-08-14 14:43] LABS: Bilirubin Urine Negative (Negative); Blood Urine Negative (Negative); Glucose Urine UA Negative (Normal); Ketones Urine Trace (Negative); Leukocyte Esterase Urine Negative (Negative); Nitrate Urine Negative (Negative); Protein Urine Trace (Negative); Specific Gravity, Urine 1.021 (1.005-1.030); Urine Appearance Clear (CLEAR); Urine Color Yellow (Yellow)
[2024-08-14 14:48] LABS: Bacteria Urine 1+ /hpf; Hyaline Casts Urine 4.52 /lpf; RBC Urine 0-2 /hpf (0-2); WBC Urine 0-5 /hpf (0-5)
[2024-08-14 14:56] LABS: Albumin Level 4.3 g/dL (3.5-5.2); Anion Gap 19.1 (5-19); Blood Urea Nitrogen 20 mg/dL (8-23); Calcium 9.5 mg/dL (8.5-10.5); Carbon Dioxide 22 mmol/L (22-29); Chloride 103 mmol/L (98-107); Glucose 149 mg/dL (65-115); Phosphorus 3.2 mg/dL (2.5-4.5); Potassium 4.1 mmol/L (3.5-5.1); Sodium 140 mmol/L (136-145)
== END 2024-08-14 13:49 | disposition home or self-care (01) ==
LOC: LAB 13:51
PROVIDERS: PCP Nurse Practitioner Family; Visit Provider Registered Nurse
DX: N39.0 Urinary tract infection, site not specified (principal); N18.32 Chronic kidney disease, stage 3b
CPT/HCPCS: 36415; 80069; 81001; 87086

== ENCOUNTER → 2024-11-27 13:32 | Outpatient (BNVA) | payer MEDICARE, OTHER, SELFPAY | PROVIDERS: PCP Nurse Practitioner Family; Visit Provider Specialist | DX: M70.61 Trochanteric bursitis, right hip (principal) | CPT/HCPCS: 20610; 73502; 99214; J1100; J2795; J3301; J9999 ==

== ENCOUNTER → 2024-12-08 08:28 | Outpatient (BNVA) | payer MEDICARE, OTHER, SELFPAY | PROVIDERS: PCP Nurse Practitioner Family; Visit Provider Specialist | DX: M70.62 Trochanteric bursitis, left hip (principal) | CPT/HCPCS: 20610; J1100; J2795; J3301; J9999 ==